=== PATIENT | male | born 1940 | race Caucasian/White ===

== ENCOUNTER 2017-03-19 15:22 | Inpatient (IN) | payer OTHER ==
[2017-03-19 15:35] VITALS: BMI 22.2
--- NOTE | 2017-03-19 16:07 | PDOC ---
Attending Attestation - Resident Resident Name: Kaylyn Acosta - ED Attending Attestation I have performed the following: I have examined & evaluated the patient, The case was reviewed & discussed with the resident, I agree w/resident's findings & plan, Exceptions are as noted - HPI HPI: 03/19/17 18:31 76yo male with AMS since this AM woke up confused. Wouldnt eat or drink this am per the niece at the bedside. did give him insulin and his meds. became more confused. called 911, bg was 19. given OJ. Improved BG, but not MS. Still confused. No f/c. No cough. Change in speech since this AM. No n/v/d. No c/o dysuria recently. - Physicial Exam PE: 03/19/17 18:32 Gen: awake, confused, not following commands heart: +s1s2 reg lungs: cta b/l, poor inspiratory effort abd: soft, nt/nd +bs, diaper on ext: trace edema to LE, pedal pulses intact neuro: hx of cva with residual L sided weakness, generally weak, abnl speech, L sided weakness, difficult to get the patient to follow commands - Medical Decision Making 03/19/17 16:06 I, Dr. Klarissa Blevins, DO, attest that this document has been prepared under my direction and personally reviewed by me in its entirety. I further attest, that it accurately reflects all work, treatment, procedures and medical decision -making performed by me. 03/19/17 16:23 A/P: 76yo male with AMS -hypoglycemia at home, given OJ and glucose by medics, repeat was 106 -bg 149 in the ED -confused, altered, difficult following commands -generally weak -no focal deficits -altered speech per niece -will check labs, ekg, cxr, trop, ua, trop -head ct -will monitor glucose and will discuss with DR. Solano 03/19/17 16:25 pt woke up altered and confused 03/19/17 17:41 pt with RML infiltrate on xray will add blood cultures and abx for CAP 03/19/17 18:26 Dr. Solano at the bedside. pna on xray cultures obtained and sent will admit to DR. Solano
--- NOTE | 2017-03-19 16:33 | PDOC ---
History of Present Illness - General Chief Complaint: Blood Sugar Problem Stated Complaint: LOW BLOOD SUGAR Time Seen by Provider: 03/19/17 16:05 - History of Present Illness Initial Comments: Mr. Hollingsworth is a 76yo M with a PMHx of CVA, Dementia, and DM2, who was brought by EMS by his niece due to Altered Mental Status. She states that since this morning the patient was not acting himself. He was confused, at times not understandable, and forgetting how to do simple tasks. The niece worried about possible new stroke and called EMS. EMS checked fingerstick, was 19, was given PO glucose with improvement to 198. Niece states in retrospect, she had given him extra insulin in the morning after seeing that his AM glucose was around 150. Subsequently due to his confusion, the patient did not eat well the whole day. He denies any vision deficits, swallowing difficulty, focal weakness, gait disturbance, fevers, chills, CP, SOB, abd pain. Past History - Past Medical History Allergies/Adverse Reactions: Allergies Allergy/AdvReac Type Severity Reaction Status Date / Time No Known Allergies Allergy Verified 03/19/17 21:20 Home Medications: Ambulatory Orders Atorvastatin Calcium 20 mg PO HS 03/19/17 Celecoxib [Celebrex] 200 mg PO DAILY PRN 03/19/17 Memantine HCl/Donepezil HCl [Namzaric 28 mg-10 mg Capsule] 1 tab PO DAILY Quetiapine Fumarate [Seroquel -] 25 mg PO BID 03/19/17 Ramipril 5 mg PO Q2D 03/19/17 Tamsulosin HCl [Flomax -] 0.4 mg PO DAILY 03/19/17 Aspirin [ASA -] 81 mg PO DAILY tab.chew 03/22/17 COPD: No Diabetes: Yes Hypercholesterolemia: Yes Psychiatric Problems: Yes - Suicide/Smoking/Psychosocial Hx Smoking History: Never smoked Hx Alcohol Use: No Drug/Substance Use Hx: No Substance Use Type: None *Physical Exam - Vital Signs Last Vital Signs Temp Pulse Resp BP Pulse Ox 98.4 F 74 18 132/54 100 03/19/17 15:24 03/19/17 15:24 03/19/17 15:24 03/19/17 15:24 03/19/17 15:24 - Physical Exam Comments: GEN: Awake, alert, difficulty following commands, slow to respond, not oriented to person, place, and time HEENT: PERRLA, EOMi CV: S1, S2, RRR LUNG: CTABL ABD: Soft, NT, ND, normoactive BS MSK: No edema, no erythema NEURO: Mostly difficult to assess due to lack of cooperation, but in general all facial movements are symmetric, residual LUE and LLE weakness, RUE and RLE are 4/5, no sensation abnormalities ED Treatment Course - LABORATORY CBC & Chemistry Diagram: 03/22/17 05:35 03/22/17 05:35 - RADIOLOGY Radiology Studies Ordered: Category Date Time Status HEAD CT WITHOUT CONTRAST [CT] Stat CT Scan 03/19/17 16:06 Ordered CHEST X-RAY PORTABLE* [RAD] Stat Radiology 03/19/17 16:16 Ordered Medical Decision Making - Medical Decision Making 76yo diabetic male with dementia, prior history of stroke who presented with hypoglycemia and AMS. After PO glucose, his BGM improved to 198, but confusion persisted. Will need to rule out other causes of AMS such as infection, stroke, metabolic abnormalities. Will obtain CBC, CMP, CXR, UA, Troponin, Lactic Acid. Dispo likely observation for AMS. PCP Dr. Mervin Kerns. Dr Astudillo covering, placed call to him, he is aware of the patient. 03/19/17 17:46 CXR back. Possible R sided infiltrate. In the case of AMS, would treat with Cef/ Azithro, which would cover for possible UTI. 03/19/17 17:55 Dr Xiomara Astudillo arrived at ER to examine patient. Accepted patient for observation. 03/19/17 19:[address] negative for stroke. Chronic atrophic changes c/w dementia *DC/Admit/Observation/Transfer Diagnosis at time of Disposition: Hypoglycemia associated with type 2 diabetes mellitus - Discharge Dispostion Condition at time of disposition: Stable Admit: Yes - Referrals - Patient Instructions - Post Discharge Activity
[2017-03-19 17:18] LABS: BASO % 0.8 % (0-2.0); EOS % 1.6 % (0-4.5); HEMATOCRIT 41.9 % (35.4-49); LYMPH % 30.3 % (8-40); MCH 28.9 pg (25.7-33.7); MCHC 33.4 g/dl (32.0-35.9); MEAN CELL VOLUME 86.6 fl (80-96); MEAN PLT VOLUME 9.7 fl (7.5-11.1); NEUT % 60.3 % (42.8-82.8); RBC 4.84 M/mm3 (4.00-5.60); RDW 14.8 % (11.9-15.9); WHITE BLOOD COUNT 9.6 K/mm3 (4.0-10.0)
[2017-03-19] MEDS ORDERED: SODIUM CHLORIDE 0.9% 1000 ML INFUS.BAG IV ONE ×2 (18:27→20:20)
[2017-03-19 20:02] LABS: CALCIUM 9.5 mg/dL (8.5-10.1)
[2017-03-19 20:23] LABS: ALBUMIN 3.5 g/dl (3.4-5.0); ALK PHOS 95 U/L (45-117); ANION GAP 10 (8-16); BILIRUBIN,TOTAL 0.4 mg/dL (0.2-1.0); BLOOD UREA NITROGEN 10 mg/dL (7-18); CHLORIDE 104 mmol/L (98-107); CO2 30 mmol/L (21-32); CREATININE 0.8 mg/dL (0.7-1.3); GLUCOSE,RANDOM 139 mg/dL (74-106); POTASSIUM 3.5 mmol/L (3.5-5.1); SGOT/AST 13 U/L (15-37); SGPT/ALT 14 U/L (12-78); SODIUM 144 mmol/L (136-145); TOT PROT 7.1 g/dl (6.4-8.2)
[2017-03-19] MEDS ORDERED: AZITHROMYCIN IVPB 250 ML IVPB ONE (21:24)
[2017-03-19] MEDS ORDERED: CEFTRIAXONE 1 GM/50 ML BAG ONE (21:24)
[2017-03-19] MEDS ORDERED: CEFTRIAXONE 1 G/50 ML PREMIX 50 ML IVPB ONE (21:30)
[2017-03-19] MEDS ORDERED: AZITHROMYCIN IVPB 500 MG in DEXTROSE 5%-WATER - 250 ML IVPB ONE (21:30)
[2017-03-19 22:04] LABS: URINE APPEARANCE CLEAR; URINE BILIRUBIN NEGATIVE (NEGATIVE); URINE BLOOD NEGATIVE (NEGATIVE); URINE COLOR YELLOW; URINE GLUCOSE (UA) NEGATIVE (NEGATIVE); URINE KETONE TRACE (NEGATIVE); URINE LEUK ESTERASE NEGATIVE (NEGATIVE); URINE NITRITE NEGATIVE (NEGATIVE); URINE PROTEIN NEGATIVE (NEGATIVE); URINE UROBILINOGEN NEGATIVE mg/dL (0.2-1.0)
[2017-03-20] MEDS ORDERED: CELECOXIB 200 MG CAPSULE PO PRN (00:40)
[2017-03-20] MEDS ORDERED: D5-1/2NS+10 MEQ KCL - 10 MEQ/1,000 ML INFUS.BAG IV SCH ×2 (00:45→01:02)
--- NOTE | 2017-03-20 00:51 | HP ---
Admitting History and Physical - Primary Care Physician PCP: Mervin Kerns - Admission Chief Complaint: Altered mental status with Hypoglycemia History of Present Illness: 76 yrs old man lives at home with family, poor gait stability walks with a walker, Dementia with behavioral changes, HTN, T2DM, Hypercholeterolemia , BIB family for evaluation of an episode of altered mental status, as per family patient received insulin for high FS in am (150s) as per niece), unsure about food intake fater some time patient was found diaphoretic, confused and altered , with FS of 19 , Juse and dextrose given FS improved to 189 with improvement in mental satus almost at base line , patient denies any haed ache, focal neurological weakness, fever, cough, dysuria, nausea, vomiting or diarrhea, no witnessed seizures in the Ed all labs are at base line ad,itted for close observation and optimization of Glycemic control. 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 Cardiovascular: Yes: HTN Psych: Yes: Psychosis Musculoskeletal: Yes: Chronic low back pain Endocrine: Yes: Diabetes Mellitus - Smoking History Smoking history: Never smoked Have you smoked in the past 12 months: No - Alcohol/Substance Use Hx Alcohol Use: No - Social History Usual Living Arrangement: Yes: With Child ADL: Family Assistance Home Medications - Allergies Allergies/Adverse Reactions: Allergies Allergy/AdvReac Type Severity Reaction Status Date / Time No Known Allergies Allergy Verified 03/19/17 21:20 - Home Medications Home Medications: Ambulatory Orders Atorvastatin Calcium 20 mg PO HS 03/19/17 Celecoxib [Celebrex] 200 mg PO DAILY PRN 03/19/17 Glipizide 5 mg PO DAILY 03/19/17 Memantine HCl/Donepezil HCl [Namzaric 28 mg-10 mg Capsule] 1 tab PO DAILY Quetiapine Fumarate [Seroquel -] 25 mg PO BID 03/19/17 Ramipril 5 mg PO Q2D 03/19/17 Sitagliptin Phos/Metformin HCl [Janumet 50-1,000 mg Tablet] 1 tablet PO DAILY Tamsulosin HCl [Flomax] 0.4 mg PO DAILY 03/19/17 Family Disease History - Family Disease History Other Family History: Not contributary Review of Systems Unable to obtain ROS, reason: Limited to Dementia - Review of Systems Constitutional: denies: Diaphoresis, Fever HENT: denies: Difficult Swallowing, Ear Discharge Neck: denies: Decreased ROM, Lumps Cardiovascular: denies: Chest Pain, Edema, Palpitations Respiratory: denies: Cough, Exercise Intolerance Gastrointestinal: denies: Abdominal Pain, Bloating Genitourinary: denies: Burning, Discharge Musculoskeletal: reports: Back Pain Neurological: reports: Change in LOC, Confusion, Incoordination. 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 Labs: CBC, BMP 03/19/17 17:00 03/19/17 18:13 Laboratory Results - last 24 hr 03/19/17 03/19/17 03/19/17 16:04 17:00 17:00 WBC 9.6 RBC 4.84 Hgb 14.0 Hct 41.9 MCV 86.6 MCH 28.9 MCHC 33.4 RDW 14.8 Plt Count MPV 9.7 Neutrophils % 60.3 Lymphocytes % 30.3 Monocytes % 7.0 Eosinophils % 1.6 Basophils % 0.8 Sodium Cancelled Potassium Cancelled Chloride Cancelled Carbon Dioxide Cancelled Anion Gap Cancelled BUN Cancelled Creatinine Cancelled Creat Clearance w eGFR Cancelled POC Glucometer [phone] Random Glucose Cancelled Lactic Acid Calcium Cancelled Total Bilirubin Cancelled AST Cancelled ALT Cancelled Alkaline Phosphatase Cancelled Troponin I Total Protein Cancelled Albumin Cancelled Urine Color Urine Appearance Urine pH Ur Specific [place] Urine Protein Urine Glucose (UA) Urine Ketones Urine Blood Urine Nitrite Urine Bilirubin Urine Urobilinogen Ur Leukocyte Esterase 03/19/17 03/19/1703/19/18 17:00 17:00 18:13 WBC RBC Hgb Hct MCV MCH MCHC RDW Plt Count MPV Neutrophils % Lymphocytes % Monocytes % Eosinophils % Basophils % Sodium 144 Potassium 3.5 Chloride 104 Carbon Dioxide 30 Anion Gap 10 BUN 10 Creatinine 0.8 Creat Clearance w eGFR > 60 POC Glucometer Random Glucose 139 H Lactic Acid 2.9 H* Calcium 9.5 Total Bilirubin 0.4 AST 13 L ALT 14 Alkaline Phosphatase 95 Troponin I < 0.02 Total Protein 7.1 Albumin 3.5 Urine Color Urine Appearance Urine pH Ur Specific [place] Urine Protein Urine Glucose (UA) Urine Ketones Urine Blood Urine Nitrite Urine Bilirubin Urine Urobilinogen Ur Leukocyte Esterase 03/19/17 03/19/17 21:51 22:18 WBC RBC Hgb Hct MCV MCH MCHC RDW Plt Count MPV Neutrophils % Lymphocytes % Monocytes % Eosinophils % Basophils % Sodium Potassium Chloride Carbon Dioxide Anion Gap BUN Creatinine Creat Clearance w eGFR POC Glucometer [phone] Random Glucose Lactic Acid Calcium Total Bilirubin AST ALT Alkaline Phosphatase Troponin I Total Protein Albumin Urine Color Yellow Urine Appearance Clear Urine pH 5.0 Ur Specific [place] 1.021 Urine Protein Negative Urine Glucose (UA) Negative Urine Ketones Trace H Urine Blood Negative Urine Nitrite Negative Urine Bilirubin Negative Urine Urobilinogen Negative Ur Leukocyte Esterase Negative Imaging - Results Chest X-ray: Report Reviewed X-ray: Report Reviewed (poor areation no infiltrates) Cat Scan: Report Reviewed (No acute chanes Chronic nasal bone fracture) Problem List - Problems (1) Altered mental state Assessment/Plan: Due to hypoglycemia , no obvious infectious, will hold abx observe most likely medication or diet non complince will discuss with the family. Code(s): R41.82 - ALTERED MENTAL STATUS, UNSPECIFIED Qualifiers: Altered mental status type: disorientation Qualified Code(s): R41.0 - Disorientation, unspecified (2) Hypoglycemia Assessment/Plan: due to medication error or poor Po will discuss with the family off oral meds D5 1/2 NS with Kcl 50 CC/HR Tolerating PO , on correction scale insulin. Code(s): E16.2 - HYPOGLYCEMIA, UNSPECIFIED (3) Uncontrolled diabetes mellitus Assessment/Plan: Po meds on Hold due to Hypoglycemia cont D5 and accicheck F/u HBA1C Code(s): E11.65 - TYPE 2 DIABETES MELLITUS WITH HYPERGLYCEMIA Qualifiers: Diabetes mellitus type: type 2 (4) Dementia Assessment/Plan: Chronic stable cont home meds Code(s): F03.90 - UNSPECIFIED DEMENTIA WITHOUT BEHAVIORAL DISTURBANCE Qualifiers: Dementia type: Alzheimer's disease (5) HTN (hypertension) Assessment/Plan: Well controlled cont home meds Code(s): I10 - ESSENTIAL (PRIMARY) HYPERTENSION (6) Gait instability Assessment/Plan: Chronic on wheel chair walks with a walker, PT evaluation. fall precautions. Code(s): R26.81 - UNSTEADINESS ON FEET (7) Elevated lactic acid level Assessment/Plan: No infectious etiology afebrile, TWBC normal, no tcahycardia, normal UA CXr no infiltrates no abd pain, SOB or cough can be due to dehydration and metformin F/U Lctic acid after IV hydration. Code(s): R79.89 - OTHER SPECIFIED ABNORMAL FINDINGS OF BLOOD CHEMISTRY (8) BPH (benign prostatic hyperplasia) Assessment/Plan: Cont home meds. Code(s): N40.0 - BENIGN PROSTATIC HYPERPLASIA WITHOUT LOWER URINRY TRACT SYMP
[2017-03-20] MEDS: INSULIN SLIDING SCALE (NOVOLOG) 1 VIAL SQ SCH ×3 (06:15→16:54)
[2017-03-20] MEDS ORDERED: PT OWN MED DRAWER 7, Y5N ONE (09:28)
[2017-03-20] MEDS: QUEtiapine FUMARATE 25 MG TABLET (FP) PO SCH ×2 (09:32→22:59)
[2017-03-20] MEDS: TAMSULOSIN HCL 0.4 MG CAP.ER.24H (FP) PO SCH (09:32)
[2017-03-20 09:54] LABS: BASO % 0.8 % (0-2.0); EOS % 2.8 % (0-4.5); HEMOGLOBIN 12.7 GM/dL (11.7-16.9); LYMPH % 35.6 % (8-40); MCH 28.2 pg (25.7-33.7); MCHC 32.5 g/dl (32.0-35.9); MEAN CELL VOLUME 86.8 fl (80-96); MEAN PLT VOLUME 9.2 fl (7.5-11.1); NEUT % 52.8 % (42.8-82.8); PLATELET COUNT 206 K/MM3 (134-434); RBC 4.49 M/mm3 (4.00-5.60); RDW 14.5 % (11.9-15.9); WHITE BLOOD COUNT 5.8 K/mm3 (4.0-10.0)
[2017-03-20] MEDS ORDERED: PATIENT'S OWN MEDICATION (NON-FORMULARY) (Memantine Hcl/Donepezil Hcl [Namzaric 28 Mg-10 M PO SCH (10:00)
[2017-03-20 10:13] LABS: ANION GAP 7 (8-16); BLOOD UREA NITROGEN 7 mg/dL (7-18); CALCIUM 8.3 mg/dL (8.5-10.1); CHLORIDE 109 mmol/L (98-107); CHOLESTEROL 112 mg/dL (50-200); CO2 28 mmol/L (21-32); CREATININE 0.6 mg/dL (0.7-1.3); GLUCOSE,RANDOM 160 mg/dL (74-106); MAGNESIUM 1.5 mg/dL (1.8-2.4); POTASSIUM 3.2 mmol/L (3.5-5.1); SODIUM 144 mmol/L (136-145); TRIGLYCERIDES 67 mg/dL (35-160)
[2017-03-20 10:27] LABS: HDL CHOLESTEROL 51 mg/dL (40-60); LDL CHOLESTEROL (ONLY SJRH) 59 mg/dL (5-100)
--- NOTE | 2017-03-20 12:33 | EKG ---
Test Reason : Blood Pressure : / mmHG Vent. Rate : 075 BPM Atrial Rate : 075 BPM P-R Int : 108 ms QRS Dur : 084 ms QT Int : 362 ms P-R-T Axes : 059 -48 015 degrees QTc Int : 404 ms POOR DATA QUALITY, INTERPRETATION MAY BE ADVERSELY AFFECTED SINUS RHYTHM WITH SHORT GA LEFT AXIS DEVIATION POSSIBLE ANTERIOR INFARCT , AGE UNDETERMINED ABNORMAL ECG WHEN COMPARED WITH ECG OF 19-JUN-2007 11:20, NO SIGNIFICANT CHANGE WAS FOUND Confirmed by MARIELLA ROJAS MD ([id number]) on 03/20/2017 12:33:33 PM Referred By: Confirmed By:MARIELLA ROJAS MD
[2017-03-20] MEDS ORDERED: POTASSIUM CHLORIDE ORAL LIQUID 20 MEQ/15 ML PO ONE ×2 (14:19→15:30)
--- NOTE | 2017-03-20 14:30 | PN ---
Progress Note, Physician Chief Complaint: Patient is alert Dementia is at base line, yesterday discussed with the daughter , on the day of Hospitalization am FS was 150 patient took his medications, but ate small portion of breakfast, in the after noon patient was lethargic 911 was called Fs reported 19 responded to Dextrose, remained afebrile. - Current Medication List Current Medications: Active Medications Atorvastatin Calcium (Lipitor -) 20 mg PO HS [facility] Celecoxib (Celebrex -) 200 mg PO DAILY PRN PRN Reason: PAIN Insulin Aspart (Novolog Vial Sliding Scale -) 1 vial SQ TIDAC [facility] PRN Reason: Protocol Last Admin: 03/20/17 14:03 Dose: 8 units Magnesium Sulfate (Magnesium Sulfate) 1 gm IVPB ONCE ONE Stop: 03/20/17 14:22 Non-Formulary Medication (Memantine Hcl/Donepezil Hcl [Namzaric 28 Mg-10 Mg Capsule]) 1 tab PO DAILY [facility] Potassium Chloride (Potassium Chloride Oral Liquid) 40 meq PO ONCE ONE Stop: 03/20/17 14:20 Quetiapine Fumarate (Seroquel -) 25 mg PO BID [facility] Last Admin: 03/20/17 09:32 Dose: 25 mg Tamsulosin HCl (Flomax -) 0.4 mg PO DAILY@0830 [facility] Last Admin: 03/20/17 09:32 Dose: 0.4 mg - Objective Vital Signs: Vital Signs Temperature 98.2 F 03/20/17 08:10 Pulse Rate 64 03/20/17 08:10 Respiratory Rate 14 03/20/17 09:00 Blood Pressure 124/68 03/20/17 08:10 O2 Sat by Pulse Oximetry (%) 99 03/20/17 09:00 Elderly Mna more alert, not in distress HEENT: MM Moist, no anemia, PERRLA, EOMI NECK: No JVD No [place] CHEST: CTA B/L CVS: S1S2 R no m/g/r ABD: No distention, non tender Bs + EXT: Trace 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 Labs: CBC, BMP 03/20/17 09:20 03/20/17 09:20 Problem List - Problems (1) Altered mental state Assessment/Plan: Due to hypoglycemia , no obvious infectious, will hold abx observe most likely medication or diet non complince will discuss with the family. Code(s): R41.82 - ALTERED MENTAL STATUS, UNSPECIFIED Qualifiers: Altered mental status type: disorientation Qualified Code(s): R41.0 - Disorientation, unspecified (2) Hypoglycemia Assessment/Plan: due to medication error or poor Po will discuss with the family off oral meds D5 1/2 NS with Kcl 50 CC/HR Tolerating PO , on correction scale insulin. Code(s): E16.2 - HYPOGLYCEMIA, UNSPECIFIED (3) Uncontrolled diabetes mellitus Assessment/Plan: Po meds on Hold due to Hypoglycemia cont D5 and accicheck F/u HBA1C Code(s): E11.65 - TYPE 2 DIABETES MELLITUS WITH HYPERGLYCEMIA Qualifiers: Diabetes mellitus type: type 2 (4) Dementia Assessment/Plan: Chronic stable cont home meds Code(s): F03.90 - UNSPECIFIED DEMENTIA WITHOUT BEHAVIORAL DISTURBANCE Qualifiers: Dementia type: Alzheimer's disease (5) HTN (hypertension) Assessment/Plan: Well controlled cont home meds Code(s): I10 - ESSENTIAL (PRIMARY) HYPERTENSION (6) Gait instability Assessment/Plan: Chronic on wheel chair walks with a walker, PT evaluation. fall precautions. Code(s): R26.81 - UNSTEADINESS ON FEET (7) Elevated lactic acid level Assessment/Plan: No infectious etiology afebrile, TWBC normal, no tcahycardia, normal UA CXr no infiltrates no abd pain, SOB or cough can be due to dehydration and metformin F/U Lctic acid after IV hydration. Code(s): R79.89 - OTHER SPECIFIED ABNORMAL FINDINGS OF BLOOD CHEMISTRY (8) BPH (benign prostatic hyperplasia) Assessment/Plan: Cont home meds. Code(s): N40.0 - BENIGN PROSTATIC HYPERPLASIA WITHOUT LOWER URINRY TRACT SYMP (9) Hypokalemia Assessment/Plan: recived KCL 40 MEq PO F/U BMP Code(s): E87.6 - HYPOKALEMIA (10) Hypomagnesemia Assessment/Plan: Mag 1.5 recived Mag Sulfate F/U Mag level. Code(s): E83.42 - HYPOMAGNESEMIA
[2017-03-20] MEDS ORDERED: MAGNESIUM SULF 50% (8.12 MEQ/2 ML-1 GM VIAL) IVPB ONE (15:30)
[2017-03-20] MEDS: ATORVASTATIN CA 20 MG TABLET (FP) PO SCH (22:59)
[2017-03-21] MEDS: INSULIN SLIDING SCALE (NOVOLOG) 1 VIAL SQ SCH ×3 (06:11→17:38)
[2017-03-21 07:38] LABS: BASO % 0.9 % (0-2.0); EOS % 2.2 % (0-4.5); HEMATOCRIT 40.2 % (35.4-49); HEMOGLOBIN 13.1 GM/dL (11.7-16.9); LYMPH % 34.8 % (8-40); MCH 28.3 pg (25.7-33.7); MCHC 32.6 g/dl (32.0-35.9); MEAN CELL VOLUME 86.8 fl (80-96); MEAN PLT VOLUME 9.3 fl (7.5-11.1); MONO % 6.9 % (3.8-10.2); NEUT % 55.2 % (42.8-82.8); PLATELET COUNT 230 K/MM3 (134-434); RBC 4.63 M/mm3 (4.00-5.60); RDW 14.5 % (11.9-15.9); WHITE BLOOD COUNT 8.2 K/mm3 (4.0-10.0)
[2017-03-21 08:09] LABS: CHLORIDE 110 mmol/L (98-107); POTASSIUM 3.3 mmol/L (3.5-5.1); SODIUM 145 mmol/L (136-145)
[2017-03-21 08:34] LABS: ALBUMIN 2.9 g/dl (3.4-5.0); ALK PHOS 77 U/L (45-117); ANION GAP 10 (8-16); BILIRUBIN,TOTAL 0.4 mg/dL (0.2-1.0); BLOOD UREA NITROGEN 9 mg/dL (7-18); CALCIUM 7.7 mg/dL (8.5-10.1); CO2 25 mmol/L (21-32); CREATININE 0.7 mg/dL (0.7-1.3); GLUCOSE,RANDOM 106 mg/dL (74-106); SGOT/AST 8 U/L (15-37); SGPT/ALT 13 U/L (12-78); TOT PROT 5.5 g/dl (6.4-8.2)
[2017-03-21] MEDS: QUEtiapine FUMARATE 25 MG TABLET (FP) PO SCH ×2 (09:45→21:54)
[2017-03-21] MEDS: TAMSULOSIN HCL 0.4 MG CAP.ER.24H (FP) PO SCH (09:45)
--- NOTE | 2017-03-21 11:45 | PN ---
Progress Note, Physician Chief Complaint: Patient is alert Dementia is at base line, yesterday discussed with the daughter , on the day of Hospitalization am FS was 150 patient took his medications, but ate small portion of breakfast, in the after noon patient was lethargic 911 was called Fs reported 19 responded to Dextrose, remained afebrile. - Current Medication List Current Medications: Active Medications Atorvastatin Calcium (Lipitor -) 20 mg PO HS [facility] Last Admin: 03/20/17 22:59 Dose: 20 mg Celecoxib (Celebrex -) 200 mg PO DAILY PRN PRN Reason: PAIN Insulin Aspart (Novolog Vial Sliding Scale -) 1 vial SQ TIDAC [facility] PRN Reason: Protocol Last Admin: 03/21/17 06:11 Dose: Not Given Non-Formulary Medication (Memantine Hcl/Donepezil Hcl [Namzaric 28 Mg-10 Mg Capsule]) 1 tab PO DAILY [facility] Potassium Chloride (Potassium Chloride Oral Liquid) 40 meq PO ONCE ONE Stop: 03/21/17 11:39 Quetiapine Fumarate (Seroquel -) 25 mg PO BID [facility] Last Admin: 03/21/17 09:45 Dose: 25 mg Tamsulosin HCl (Flomax -) 0.4 mg PO DAILY@0830 [facility] Last Admin: 03/21/17 09:45 Dose: 0.4 mg - Objective Vital Signs: Vital Signs Temperature 98.2 F 03/21/17 08:20 Pulse Rate 72 03/21/17 08:20 Respiratory Rate 14 03/21/17 08:20 Blood Pressure 150/72 03/21/17 08:20 O2 Sat by Pulse Oximetry (%) 99 03/20/17 09:00 Elderly Mna more alert, not in distress HEENT: MM Moist, no anemia, PERRLA, EOMI NECK: No JVD No [place] CHEST: CTA B/L CVS: S1S2 R no m/g/r ABD: No distention, non tender Bs + 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 Code(s): R41.82 - ALTERED MENTAL STATUS, UNSPECIFIED Qualifiers: Altered mental status type: disorientation Qualified Code(s): R41.0 - Disorientation, unspecified (2) Hypoglycemia Code(s): E16.2 - HYPOGLYCEMIA, UNSPECIFIED (3) Uncontrolled diabetes mellitus Assessment/Plan: Po meds on Hold due to Hypoglycemia accucheck < 200, F/u HBA1C 6.7 Code(s): E11.65 - TYPE 2 DIABETES MELLITUS WITH HYPERGLYCEMIA Qualifiers: Diabetes mellitus type: type 2 (4) Dementia Assessment/Plan: Chronic stable cont home meds Code(s): F03.90 - UNSPECIFIED DEMENTIA WITHOUT BEHAVIORAL DISTURBANCE Qualifiers: Dementia type: Alzheimer's disease (5) HTN (hypertension) Assessment/Plan: Well controlled cont home meds Code(s): I10 - ESSENTIAL (PRIMARY) HYPERTENSION (6) Gait instability Code(s): R26.81 - UNSTEADINESS ON FEET (7) Elevated lactic acid level Code(s): R79.89 - OTHER SPECIFIED ABNORMAL FINDINGS OF BLOOD CHEMISTRY (8) BPH (benign prostatic hyperplasia) Code(s): N40.0 - BENIGN PROSTATIC HYPERPLASIA WITHOUT LOWER URINRY TRACT SYMP (9) Hypokalemia Assessment/Plan: Recieved KCL 40 MEq PO F/U BMP Code(s): E87.6 - HYPOKALEMIA (10) Hypomagnesemia Assessment/Plan: Resolved Code(s): E83.42 - HYPOMAGNESEMIA (11) CVA (cerebral vascular accident) Assessment/Plan: H/O CVA now wheel chair bound. Code(s): I63.9 - CEREBRAL INFARCTION, UNSPECIFIED
[2017-03-21] MEDS ORDERED: POTASSIUM CHLORIDE ORAL LIQUID 20 MEQ/15 ML PO ONE (12:15)
[2017-03-21] MEDS: HEPARIN NA (PORCINE) 5,000 UNITS/ML 1ML VIAL SQ SCH (21:54)
[2017-03-21] MEDS: ATORVASTATIN CA 20 MG TABLET (FP) PO SCH (21:54)
[2017-03-22] MEDS: INSULIN SLIDING SCALE (NOVOLOG) 1 VIAL SQ SCH ×3 (06:13→16:58)
[2017-03-22 07:47] LABS: BASO % 1.2 % (0-2.0); EOS % 3.2 % (0-4.5); HEMOGLOBIN 13.7 GM/dL (11.7-16.9); LYMPH % 31.2 % (8-40); MCH 28.4 pg (25.7-33.7); MCHC 32.7 g/dl (32.0-35.9); MEAN PLT VOLUME 9.6 fl (7.5-11.1); MONO % 7.8 % (3.8-10.2); NEUT % 56.6 % (42.8-82.8); PLATELET COUNT 234 K/MM3 (134-434); RBC 4.83 M/mm3 (4.00-5.60); RDW 14.5 % (11.9-15.9); WHITE BLOOD COUNT 7.3 K/mm3 (4.0-10.0)
[2017-03-22 08:25] LABS: CHLORIDE 107 mmol/L (98-107); POTASSIUM 3.5 mmol/L (3.5-5.1); SODIUM 144 mmol/L (136-145)
[2017-03-22 08:30] LABS: ANION GAP 9 (8-16); BLOOD UREA NITROGEN 11 mg/dL (7-18); CALCIUM 8.4 mg/dL (8.5-10.1); CO2 28 mmol/L (21-32); CREATININE 0.7 mg/dL (0.7-1.3); GLUCOSE,RANDOM 115 mg/dL (74-106)
[2017-03-22] MEDS: HEPARIN NA (PORCINE) 5,000 UNITS/ML 1ML VIAL SQ SCH (09:30)
[2017-03-22] MEDS: TAMSULOSIN HCL 0.4 MG CAP.ER.24H (FP) PO SCH (09:30)
[2017-03-22] MEDS: QUEtiapine FUMARATE 25 MG TABLET (FP) PO SCH (09:31)
[2017-03-22] MEDS ORDERED: RANITIDINE HCL 150 MG TABLET (FP) PO SCH (10:00)
[2017-03-22] MEDS ORDERED: ASPIRIN 81 MG CHEWABLE TABLETS PO SCH (10:00)
[2017-03-22 19:44] VITALS: BP 140/67; PULSE 76; TEMP 98
== END 2017-03-22 19:06 | disposition home or self-care (01) | DRG 638 ==
LOC: JER 15:22 → JERBED 18:47 → J4W 23:00
PROVIDERS: ADMIT Internal Medicine; ATTEND Internal Medicine
DX: E11.649 Type 2 diabetes mellitus with hypoglycemia without coma (principal); I69.354 Hemiplegia and hemiparesis following cerebral infarction affecting left non-dominant side; I10 Essential (primary) hypertension; E78.00 Pure hypercholesterolemia, unspecified; Z79.84 Long term (current) use of oral hypoglycemic drugs; R26.81 Unsteadiness on feet; N40.0 Benign prostatic hyperplasia without lower urinary tract symptoms; E87.6 Hypokalemia; E83.42 Hypomagnesemia; G30.9 Alzheimer's disease, unspecified; F02.80 Dementia in other diseases classified elsewhere, unspecified severity, without behavioral disturbance, psychotic disturbance, mood disturbance, and anxiety; Z99.3 Dependence on wheelchair; E86.0 Dehydration; R79.89 Other specified abnormal findings of blood chemistry
CPT/HCPCS: 36415; 70450-TC; 71045-TC; 80048; 80053; 80061; 81003; 82962; 83036; 83605; 83721; 83735; 84443; 84484; 85025; 87040; 93005; 93010; 97116-GP; 97161-GP; 99283-25